=== PATIENT | male | born 1935 | race Caucasian/White ===

== ENCOUNTER 2023-05-25 08:44 | Emergency (ER) | payer OTHER ==
[~2023-05-25] VITALS: Ht 162.6 cm; Wt 72.1 kg
[2023-05-25 08:52] VITALS: BP_SYST 158; PULSE 80; RESP 18; TEMP 98.3; O2SAT 98
[2023-05-25] MEDS ORDERED: KETOROLAC TROMETHAMINE 30 MG VIAL IM ONE (09:00)
[2023-05-25] MEDS ORDERED: HYDROcodone/ACETAMIN 7.5-325 MG TAB PO ONE (09:00)
[2023-05-25 10:28] VITALS: BP_SYST 136; PULSE 74; RESP 18; TEMP 97.3; O2SAT 98
== END 2023-05-25 10:30 | disposition home or self-care (01) ==
LOC: SED 08:44
DX: S13.4XXA Sprain of ligaments of cervical spine, initial encounter (principal); Z79.899 Other long term (current) drug therapy; X58.XXXA Exposure to other specified factors, initial encounter; Y93.B2 Activity, push-ups, pull-ups, sit-ups; Y92.89 Other specified places as the place of occurrence of the external cause; Y99.8 Other external cause status
CPT/HCPCS: 99283; 72040; 96372; J1885